=== PATIENT | female | born 1995 | race Caucasian/White ===

== ENCOUNTER 2020-05-29 13:48 | Outpatient (CLI) | payer BC ==
--- NOTE | 2020-05-29 14:27 | ULT ---
EXAM: US Soft Tissue Other DATE: 05/29/2020 12:00 AM INDICATION: Palpable abnormality of the back COMPARISON: None. FINDING: Patient reports a palpable abnormality on the lower back (flank area) to the left side of t he spine for approximately 6 months. Grayscale and color Doppler images of this palpable abnormality reveals a 1.5 x 1 x 2.1 cm fat signal intensity mass. IMPRESSION:Small lipoma is seen within the soft tissues of the posterior left lower back in the palpa ble region of interest.
== END 2020-05-29 13:49 | disposition home or self-care (01) ==
LOC: BICULT 13:48
PROVIDERS: ATTEND Family Medicine
DX: R22.2 Localized swelling, mass and lump, trunk (principal); D17.1 Benign lipomatous neoplasm of skin and subcutaneous tissue of trunk
CPT/HCPCS: 76999